=== PATIENT | female | born 1935 | race Caucasian/White ===

== ENCOUNTER 2018-05-28 15:02 | Observation (INO) | payer MEDICARE, OTHER ==
[2018-05-28] MEDS: PROPOFOL 200 MG INJ IV (17:45)
[2018-05-28] MEDS: METOPROLOL (XL) 25 MG TAB PO (20:32)
[2018-05-28] MEDS: NICARDipine HCL 30 MG CAPSULE PO (21:40)
[2018-05-28 22:05] LABS: ADD MAN DIFF? NO
[2018-05-28 22:07] LABS: WHITE BLOOD COUNT 10.2 10^3/ul (4.8-10.8)
[2018-05-28 22:07] LABS: BASOPHIL # 0.1 10^3/ul (0.0-0.1); BASOPHILS % 0.5 % (0.0-2.0); EOSINOPHILS % 0.4 % (0.0-7.0); HEMOGLOBIN 12.9 g/dl (12.0-16.0); LYMPHOCYTES # 1.2 10^3/ul (0.8-2.9); LYMPHOCYTES % 11.5 % (15.0-51.0); MEAN CORPUSCULAR HEMOGLOBIN 29.5 pg (29.0-33.0); MEAN CORPUSCULAR HGB CONC 31.5 g/dl (32.0-37.0); MEAN CORPUSCULAR VOLUME 93.8 fl (82.0-101.0); MEAN PLATELET VOLUME 9.3 fl (7.4-10.4); MONOCYTE # 0.9 10^3/ul (0.3-0.9); NEUTROPHIL # 7.9 10^3/ul (1.6-7.5); NEUTROPHILS % 77.7 % (39.0-77.0); PLATELET COUNT 204 10^3/UL (140-415); RED BLOOD COUNT 4.37 10^6/ul (4.20-5.40); RED CELL DISTRIBUTION WIDTH 13.2 % (11.5-14.5)
[2018-05-28 22:36] LABS: ANION GAP 9 (5-13); BLOOD UREA NITROGEN 17 mg/dl (7-20); CALCIUM 9.1 mg/dl (8.4-10.2); CARBON DIOXIDE 28 mmol/L (21-31); CHLORIDE 104 mmol/L (97-110); CREATININE 0.58 mg/dl (0.44-1.00); GLUCOSE 107 mg/dl (70-220); POTASSIUM 4.5 mmol/L (3.5-5.1); SODIUM 141 mmol/L (135-144)
[2018-05-28] MEDS ORDERED: ACETAMINOPHEN 325 MG TAB PO (23:00)
[2018-05-28] MEDS ORDERED: ONDANSETRON 4 MG INJ IV (23:00)
[2018-05-29] MEDS ORDERED: ALBUTEROL/IPRATROPIUM (NEB) 3 ML AMP HHN
[2018-05-29] MEDS ORDERED: HYDROCODONE/APAP (5/325) TAB PO ×2
[2018-05-29] MEDS ORDERED: ACETAMINOPHEN 325 MG TAB PO
[2018-05-29] MEDS ORDERED: NACL 0.9% 3 ML SYG IV
[2018-05-29] MEDS ORDERED: ONDANSETRON 4 MG INJ IV
[2018-05-29] MEDS: METOPROLOL (XL) 25 MG TAB PO ×3 (01:52→20:30)
[2018-05-29] MEDS: ACETAMINOPHEN 325 MG TAB PO ×3 (02:55→19:28)
[2018-05-29 05:28] LABS: ADD MAN DIFF? NO
[2018-05-29 05:31] LABS: BASOPHIL # 0.1 10^3/ul (0.0-0.1); BASOPHILS % 0.6 % (0.0-2.0); EOSINOPHILS # 0.1 10^3/ul (0.0-0.5); EOSINOPHILS % 0.5 % (0.0-7.0); HEMATOCRIT 39.1 % (37.0-47.0); HEMOGLOBIN 12.6 g/dl (12.0-16.0); LYMPHOCYTES # 1.4 10^3/ul (0.8-2.9); LYMPHOCYTES % 13.8 % (15.0-51.0); MEAN CORPUSCULAR HEMOGLOBIN 29.9 pg (29.0-33.0); MEAN CORPUSCULAR HGB CONC 32.2 g/dl (32.0-37.0); MEAN CORPUSCULAR VOLUME 92.7 fl (82.0-101.0); MEAN PLATELET VOLUME 9.4 fl (7.4-10.4); MONOCYTE # 1.1 10^3/ul (0.3-0.9); MONOCYTES % 11.1 % (0.0-11.0); NEUTROPHIL # 7.3 10^3/ul (1.6-7.5); NEUTROPHILS % 73.3 % (39.0-77.0); PLATELET COUNT 196 10^3/UL (140-415); RED BLOOD COUNT 4.22 10^6/ul (4.20-5.40); RED CELL DISTRIBUTION WIDTH 13.4 % (11.5-14.5)
[2018-05-29 05:31] LABS: WHITE BLOOD COUNT 9.9 10^3/ul (4.8-10.8)
[2018-05-29 05:47] LABS: INR 1.81; PROTIME 21.1 Sec (11.9-14.9); PT RATIO 1.6
[2018-05-29 05:48] LABS: PARTIAL THROMBOPLASTIN TIME 35.4 Sec (23.0-35.0)
[2018-05-29 05:54] LABS: ALANINE AMINOTRANSFERASE 32 IU/L (13-69); ALBUMIN 3.6 g/dl (3.3-4.9); ALBUMIN/GLOBULIN RATIO 1.28; ALKALINE PHOSPHATASE 59 IU/L (42-121); ANION GAP 8 (5-13); ASPARTATE AMINO TRANSFERASE 42 IU/L (15-46); BILIRUBIN,INDIRECT 0.6 mg/dl (0-1.1); BILIRUBIN,TOTAL 0.6 mg/dl (0.2-1.3); BLOOD UREA NITROGEN 18 mg/dl (7-20); CARBON DIOXIDE 28 mmol/L (21-31); CHLORIDE 105 mmol/L (97-110); CHOL/HDL RATIO 3.2 RATIO; CHOLESTEROL 122 mg/dl (100-200); CREATININE 0.64 mg/dl (0.44-1.00); GLUCOSE 105 mg/dl (70-220); HDL CHOLESTEROL 37 mg/dl (33-92); LDL CHOLESTEROL,CALCULATED 52 mg/dl; MAGNESIUM 2.2 mg/dl (1.7-2.5); PHOSPHORUS 3.8 mg/dl (2.5-4.9); POTASSIUM 4.3 mmol/L (3.5-5.1); SODIUM 141 mmol/L (135-144); TOTAL PROTEIN 6.4 g/dl (6.1-8.1); TRIGLYCERIDES 165 mg/dl (0-149)
[2018-05-29] MEDS: LOSARTAN 25 MG TAB PO (08:21)
[2018-05-29] MEDS: CHOLECALCIFEROL 1,000 UNIT TAB PO (08:21)
[2018-05-29] MEDS: CYANOCOBALAMIN 100 MCG TAB PO (11:22)
[2018-05-29] MEDS: CALCIUM CARBONATE 1.25 GM TAB PO ×2 (11:23→20:30)
[2018-05-29] MEDS: DIGOXIN 0.125 MG TAB PO (16:00)
[2018-05-29] MEDS: WARFARIN 2 MG TAB PO (17:13)
[2018-05-29] MEDS: ATORVASTATIN 20 MG TAB PO (20:30)
[2018-05-30] MEDS: ACETAMINOPHEN 325 MG TAB PO (00:55)
[2018-05-30] MEDS: CYANOCOBALAMIN 100 MCG TAB PO (08:34)
[2018-05-30] MEDS: CHOLECALCIFEROL 1,000 UNIT TAB PO (08:34)
[2018-05-30] MEDS: METOPROLOL (XL) 25 MG TAB PO (08:35)
[2018-05-30] MEDS: CALCIUM CARBONATE 1.25 GM TAB PO (08:35)
[2018-05-30] MEDS: LOSARTAN 25 MG TAB PO (08:35)
[2018-05-30] MEDS: DIGOXIN 0.125 MG TAB PO (12:57)
[2018-05-31] MEDS ORDERED: LOSARTAN 50 MG TAB PO (09:00)
== END 2018-05-30 15:40 | disposition home or self-care (01) ==
LOC: 2NE 22:57 → E/R 15:02
DX: T84.020A Dislocation of internal right hip prosthesis, initial encounter (principal); I10 Essential (primary) hypertension; I48.91 Unspecified atrial fibrillation; G89.29 Other chronic pain; M25.512 Pain in left shoulder; I25.10 Atherosclerotic heart disease of native coronary artery without angina pectoris; Z79.01 Long term (current) use of anticoagulants; E78.5 Hyperlipidemia, unspecified; Z95.0 Presence of cardiac pacemaker; Z96.643 Presence of artificial hip joint, bilateral; Z96.651 Presence of right artificial knee joint; W19.XXXA Unspecified fall, initial encounter
CPT/HCPCS: 27265; 73510; 80048; 80053; 80061; 83735; 84100; 85025; 85610; 85730; 93005; 94770; 97110; 97116; 97162; 97530; 99285-25; G0378